=== PATIENT | male | born 2000 | race Hispanic/Latino ===

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

== ENCOUNTER 2024-08-17 18:25 | Emergency (ER) | payer OTHER ==
[~2024-08-17] VITALS: Ht 177.8 cm; Wt 103.0 kg
[2024-08-17 19:29] VITALS: BP 128/84; PULSE 71; RESP 18; TEMP 98.3
[2024-08-17 19:35] VITALS: PULSE 78; RESP 18; TEMP 99; O2SAT 98
== END 2024-08-17 19:35 | disposition home or self-care (01) ==
LOC: FSED 18:29
DX: R50.9 Fever, unspecified (principal); R51.9 Headache, unspecified
CPT/HCPCS: 70450; 99284